=== PATIENT | male | born 1935 | race Two or more races ===

== ENCOUNTER 2019-07-25 08:44 | Outpatient (CLI) | payer MEDICARE, OTHER ==
[~2019-07-25] VITALS: Ht 165.1 cm; Wt 73.5 kg
[2019-07-25] MEDS ORDERED: METOPROLOL TARTRATE INJ 5 MG/5 ML AMPUL ONE ×4 (09:10→09:33)
[2019-07-25] MEDS ORDERED: CT SWABBABLE VALVE TRANS SET 1 EA INFUS.SET MC ONE (09:25)
[2019-07-25] MEDS ORDERED: IV NS 0.9% 250 ML IV ONE (09:25)
[2019-07-25] MEDS ORDERED: IOHEXOL-350 100 ML VIAL IV ONE (09:26)
[2019-07-25] MEDS ORDERED: IV NS 0.9% 500 ML IV ONE (09:30)
[2019-07-25] MEDS ORDERED: NITROGLYCERIN 0.4 MG/TAB BOTTLE SL ONE (09:30)
[2019-07-25] MEDS ORDERED: METOPROLOL TARTRATE INJ 5 MG/5 ML AMPUL IVP ONE (09:30)
[2019-07-25 09:50] LABS: CALCIUM, SERUM 8.9 mg/dL (8.5-10.1); POTASSIUM 4.5 mmol/L (3.5-5.1)
== END 2019-07-25 23:59 | disposition home or self-care (01) ==
LOC: CT 08:44
PROVIDERS: ATTEND Internal Medicine Cardiovascular Disease
DX: R06.00 Dyspnea, unspecified (principal); I10 Essential (primary) hypertension; I20.9 Angina pectoris, unspecified; E78.5 Hyperlipidemia, unspecified; E11.9 Type 2 diabetes mellitus without complications; I65.29 Occlusion and stenosis of unspecified carotid artery; R59.9 Enlarged lymph nodes, unspecified; M47.814 Spondylosis without myelopathy or radiculopathy, thoracic region; Z98.890 Other specified postprocedural states
CPT/HCPCS: 36415; 75574; 80048; J3490 ×4; J7050; Q9967